=== PATIENT | female | born 1925 | race Caucasian/White ===

== ENCOUNTER 2017-03-17 18:10 | Inpatient (IN) | payer MEDICARE ==
[~2017-03-17] VITALS: Ht 160 cm; Wt 60.5 kg
[~2017-03-17 18:10] MED LIST: ACETAMINOPHEN325 MG PO; ARTIFICIAL TEAR15 ML EACH EYE; BAYER CHEWABLE81 MG PO; DONEPEZIL HCL10 M1 PO; FISH OIL 500 MG1 CAP PO; HALDOL DECA100 MG/M1 IM; HALDOL5 MG PO; LEXAPRO10 MG PO; MEGACE40 MG PO; MOBIC7.5 MG PO; NAMENDA XR14 MG PO; NORVASC2.5 MG PO; PERPHENAZINE2 MG PO; PRILOSEC20 MG PO; REMERON15 MG PO; SYNTHROID25 MCG PO; VITAMIN B-121000 MCG PO; VITAMIN D31000 UNI2 PO; VITAMIN D5000 UNIT PO; VITAMIN D50000 UNIT PO; ZYPREXA15 MG PO
--- NOTE | 2017-03-17 18:10 | NUR ---
Received patient from [facility] via their transportation van and staff via patient personal WC. Admitted for suicidial ideations, per nurisng home patient had made a belt out of baby wipes and had it around her chest, stating she had made a belt to hold her pants up, of which she was not wearing pants, patient dose have history of suicidial statement. Upon her arrival here on floor, she spit on one of the techs then rolled off in her wc. Redirected on appropriate behavior.
--- NOTE | 2017-03-17 22:56 | NUR ---
RECEIVED IN HALLWAY. MOVING ABOUT IN WHEELCHAIR. CALM AND COOPERATIVE WITH CARE AND ASSESSMENTS. DENIES THOUGHTS OF SELF HARM AT THIS TIME. ENCOURAGE TO EXPRESS NEEDS. RESTING IN BED EYES CLOSED AT THIS TIME. CONTINUE PLAN OF CARE
[2017-03-18 05:39] VITALS: BP 133/87
[2017-03-18 05:57] VITALS: BP 133/87
[2017-03-18 06:12] LABS: BASOPHILS 0.5 % (0-2); EOSINOPHILS 2.9 % (0-7); HEMATOCRIT 42.4 % (36.0-48.0); IMMATURE GRANULOCYTES 0.2 % (0-5); LYMPHOCYTES 49.1 % (15-50); MCH 29.3 pg (26.0-34.0); MCV 88.7 fL (80.0-100.0); MEAN PLATELET VOLUME 10.4 fL (7.4-10.4); MONOCYTES 10.8 % (2-11); NEUTROPHILS 36.5 % (40-80); PLATELET COUNT 172 10x3/uL (130-400); RBC 4.78 10x6/uL (4.00-5.40); RDW 13.9 % (11.5-14.5); WBC 5.9 10x3/uL (4.8-10.8)
[2017-03-18 06:21] LABS: HEMOGLOBIN A1C 4.9 % (4.8-6.0)
[2017-03-18 07:18] LABS: ALBUMIN 2.9 g/dL (3.4-5.0); ALKALINE PHOSPHATASE 61 U/L (46-116); ALT (SGPT) 14 U/L (10-68); BILIRUBIN - TOTAL 0.73 mg/dL (0.2-1.3); CALC OSMOLALITY 286 mosm/kg (275-300); CARBON DIOXIDE 29.2 mmol/L (21.0-32.0); CHLORIDE - SERUM 107 mmol/L (98-107); CHOL - HDL RATIO 3.6 ratio (2.3-4.1); CHOLESTEROL, TOTAL 182 mg/dL (0-200); CREATININE - SERUM 0.6 mg/dL (0.6-1.3); GLUCOSE 79 mg/dL (74-106); HDL CHOLESTEROL 51 mg/dL (32-96); LDL CHOLESTEROL 111 mg/dL (0-100); LDL-HDL RATIO 2.2 ratio (1.5-3.5); PROTEIN - SERUM 6.6 g/dL (6.4-8.2); SODIUM 144 mmol/L (136-145); THYROID STIMULATING HORMONE 2.65 uIU/mL (0.36-3.74); TRIGLYCERIDE 104 mg/dL (30-200); UREA NITROGEN 16 mg/dL (7-18); eGFR NON AFRICAN AMERICAN > 90 mL/min (90-120)
[2017-03-18 08:14] VITALS: BP 160/80
--- NOTE | 2017-03-18 12:42 | NUR ---
Received this am alert and oriented to self only. Redirect and reorient. Monitor for any suicidial ideation. Contract for safety. Monitor medication compliance. Maintain safety. No evidence of reorientation to place, time or situation, patient is resistant to directions and will stare at staf then roll her eyes and roll off in wc, refused medication this am but following education on medications patient states " give them to me" once nurse arrived back with new medication she refused. Attempted to throw her lunch tray off the table, refusing to eat. Difficulty with redirection. Safety maitained. Continue plan of care.
[2017-03-18 20:15] VITALS: BP 156/84
--- NOTE | 2017-03-19 00:33 | NUR ---
B) Recieved patient in her room, alert and oriented to self, withdrawn and refusing to commuicate with staff, self ambulates in wheelchair, I) Administered perscribed medications, monitored for safety, R) medication compliant, withdrawn and defiant, P) Continue plan of care.
[2017-03-19 06:13] LABS: VITAMIN D 25 HYDROXY 27.5 ng/mL (30.0-100.0)
[2017-03-19 07:25] LABS: FOLATE (FOLIC ACID) - SERUM 8.3 ng/mL (>3.0)
[2017-03-19 13:14] LABS: RAPID PLASMA REAGIN Reactive (Non Reactive); TREPONEMA PALLIDUM AB Negative (Negative)
--- NOTE | 2017-03-19 14:54 | NUR ---
B) PATIENT IS IRRITABLE AND GRUMPY, SHE DID NOT PRESENT THIS AM WITH AN ARMBAND SO THIS NURSE ASKED HER HER NAME, SHE SAID 'I DON'T HAVE A NAME" PATIENT DOES NOT WANT TO BE TOUCHED OR TALKED TO, BUT SHE DID COMPLY WITH AM MEDS. PATIENT IS ORIENTED TO SELF, SHE DOESN'T KNOW WHERE SHE IS, SHE DOESN'T KNOW WHY SHE IS HERE AND WHY SHE CAN'T GO TO BED. PATIENT HAS NOT SHOWN ANY S.I. TODAY NOR HAS SHE BEEN AGGRESSIVE WITH STAFF. I) PROVIDE MEDS. R) PATIENT IS COMPLIANT WITH MEDS. P) CONTINUE POC.
[2017-03-19 19:48] VITALS: BP 127/75
--- NOTE | 2017-03-20 01:59 | NUR ---
B) Recieved patient in the day room, alert and oriented to self, withdrawn and keeping to herself, I) Administered perscribed medications, monitored for falls and safety, R) medication compliant, resting quietly now, P) Continue plan of care.
--- NOTE | 2017-03-20 12:15 | NUR ---
B) PATIENT IS AWAKE AND ALERT, SHE ALLOWED ASSESSMENT, BUT SHE SAID "HITLER", SHE IS IN A W/C AND SELF PROPELS, SHE IS DELUSIONAL AND HAS POOR SHORT TERM MEMORY RECALL. I) PROVIDE PRESCRIBED MEDS. R) PATIENT IS COMPLIANT WITH MEDS. P) CONTINUE POC.
[2017-03-20 15:09] VITALS: BP 158/100
[2017-03-20 19:00] VITALS: BP 165/114
--- NOTE | 2017-03-20 21:01 | NUR ---
ORIENTED TO PERSON ONLY. MADE RANDOM DELUSIONAL STATEMENTS. REORIENTED FREQUENTLY WITH NO EVIDENCE OF RETAINING. EDUCATED ON FALL PRECAUTIONS. WILL CONTINUE TO MONITOR AND CONTINUE WITH PLAN OF CARE.
[2017-03-21 10:42] VITALS: BP 131/83
--- NOTE | 2017-03-21 13:35 | NUR ---
B) PATIENT IS AWAKE AND ALERT, SHE IS ORIENTED TO HER NAME ONLY. SHE IS EATING AND DRINKING WELL. PATIENT CAN JEFFRY PROPEL IN THE W/C. I) PROVIDE PRESCRIBED MEDS. R) PATIENT IS COMPLIANT WITH MEDS. P) CONTINUE POC.
[2017-03-21 19:30] VITALS: BP 143/95
--- NOTE | 2017-03-21 20:00 | NUR ---
B) RECEIVED IN DAYROOM SITTING IN W/C AT TABLE. SHE IS CONFUSED, BUT KNOWS HER NAME ONLY. CALM AND COOPERATIVE WITH ASSESSMENT AND CARE. I) VSS ADMINISTER PRESCRIBED MEDICATIONS. R) COMPLIANT WITH TAKING MEDICATIONS. CRUSHED IN APPLESAUCE. P) WILL CONTINUE CURRENT PLAN OF CARE AND MONITOR FOR SAFETY AND CHANGES.
[2017-03-22 07:00] VITALS: BP 168/105
[2017-03-22 19:30] VITALS: BP 138/86
--- NOTE | 2017-03-22 20:32 | NUR ---
PT RECIEVED IN W/C AT NURSE STATION. PT ALERT AND ORIENTED TO SELF ONLY. PT DENIES PAIN. NO HALLUCINATIONS OR DELUSIONS NOTED OR REPORTED. PT IS COOPERATIVE WITH STAFF AND IS COMPLIANT WITH MEDS AND CARE. NO AGGRESSION NOTED. PT IS REDIRECTED AND REORIENTED NEEDED. SAFETY MEASURES ARE IMPLEMENTED. WILL CONTINUE TO MONITOR AND CONTINUE WITH PLAN OF CARE.
--- NOTE | 2017-03-22 20:40 | NUR ---
RECEIVED IN DAYROOM. SITTING IN WHEELCHAIR AT TABLE. CALM AND COOPERATIVE WITH CARE AND ASSESSMENTS. NO THOUGHTS OF SELF HARM. ENCOURAGE TO EXPRESS NEEDS. CONTINUES TO SIT QUIETLY AT TABLE. CONTINUE PLAN OF CARE
[2017-03-23 10:13] VITALS: BP 139/120
[2017-03-23 15:46] VITALS: Ht 160 cm; Wt 60.5 kg
--- NOTE | 2017-03-23 15:47 | NUR ---
ORIENTED TO PERSON ONLY. PT EASILY AGITATED WHEN ASKED TO DO SOMETHING THAT SHE DOESN'T WANT TO DO. PT BECAME VERBALLY AGGRESSIVE DURING BREAKFAST AND SCREAMED AND CURSED AT STAFF. SHE DI CALM DOWN AFTER REDIRECTION. MEDICATIONS GIVEN ORDERED. FALL PRECAUTIONS MAINTAINED. WILL CONTINUE TO MONITOR AND CONTINUE WITH PLAN OF CARE.
[2017-03-23 19:30] VITALS: BP 88/69
--- NOTE | 2017-03-23 19:56 | NUR ---
RECEIVED IN DAYROOM. SITTING AT TABLE WITH STAFF AND PEERS. NOT SOCIALIZING. CALM AND COOPERATIVE WITH CARE AND ASSESSMENTS. ENCOURAGE TO EXPRESS NEEDS. CONTINUES TO SIT QUIETLY IN WHEELCHAIR AT TABLE. CONTINUE PLAN OF CARE
[2017-03-24 09:57] VITALS: BP 174/94
[2017-03-24 11:02] VITALS: BP 125/61
--- NOTE | 2017-03-24 13:53 | NUR ---
Alert and oriented to her name only, calm and coooperative with assessment. Redirect and reorient as need. Monitor safety. Pleasant and sits quietly, self propeling in W/C, no aggression. No evidence of reorientation. Safety maintained. Continue plan of care.
--- NOTE | 2017-03-24 19:59 | NUR ---
RECEIVED IN DAYROOM. SITTING IN RECLINER AT TABLE WITH STAFF AND PEERS. NOT SOCIALIZING WITH PEERS. CALM AND COOPERATIVE WITH CARE AND ASSESSMENTS. DENIES THOUGHTS OF SELF HARM. ENCOURAGE TO EXPRESS NEEDS. CONTINUES TO SIT QUIETLY IN RECLINER. CONTINUE PLAN OF CARE
[2017-03-25 11:34] VITALS: BP 146/87
--- NOTE | 2017-03-25 11:39 | NUR ---
ORIENTED TO PERSON ONLY. PT CONTINUES TO BE VERY AGITATED BUT NO PHYSICAL AGGRESSION. MEDICATIONS GIVEN ORDERD. FALL PRECAUTIONS MAINTAINED. WILL CONTINUE TO MONITOR AND CONTINUE WITH PLAN OF CARE.
[2017-03-25 19:30] VITALS: BP 148/98
--- NOTE | 2017-03-25 20:10 | NUR ---
RECEIVED IN DAYROOM SITTING IN RECLINER AT TABLE. ALERT AND ORIENTED TO NAME. NO SIGNS OF AGGRESION TONIGHT. ADMINISTER PRESCRIBED MEDS. VSS. COMPLIANT WITH MEDICATIONS. REDIRECT AND REORIENT NEEDED. CONTINUE PLAN OF CARE.
[2017-03-26 08:00] VITALS: BP 109/60
--- NOTE | 2017-03-26 12:03 | NUR ---
NO AGGRESSION NOTED. ORIENTED TO PERSON ONLY. ENCOURAGED PT TO PARTICIPATE IN GROUPS. PT DOES NOT COMMUNICATE OFTEN BUT SHE ABLE TO EXPRESS HER NEEDS. MEDICATIONS GIVEN ORDERED. FALL PRECAUTIONS MAINTAINED. WILL CONTINUE TO MONITOR AND CONTINUE WITH PLAN OF CARE.
--- NOTE | 2017-03-26 13:53 | NUR ---
Nutrition Follow Up: Chart reviewed. Pt is eating 40% meal avg on a regular [facility] soft diet. Wt stable. +BM 03/25/17. No new labs to review. Meds noted including Megace. Rec continue current diet. Rec continue Megace. RD following.
--- NOTE | 2017-03-26 20:43 | NUR ---
B- SITTING QUIETLY IN WHEELCHAIR IN DAY ROOM. I-MEDS ADMINISTERED AND MONITORING FOR FALLS AND SAFETY. R-COMPLIANT WITH MEDS. P- WILL CONTINUE WITH PLAN OF CARE.
[2017-03-26 21:53] VITALS: BP 170/101
[2017-03-27 07:59] VITALS: BP 155/88
--- NOTE | 2017-03-27 12:48 | NUR ---
RECEIVED IN BED THIS AM.TRANSFERS TO WHEELCHAIR WITH ASSIST OF ONE.IS CONFUSED AND DISORIENTED.COMPLIANT WITH STAFF AND MEDS.MONITOR FOR CHANGES AND SAFETY.WILL CONTINUE WITH PLAN OF CARE.
--- NOTE | 2017-03-27 18:12 | NUR ---
RECEIVED IN DINIGN AREA. SITTING AT TABLE WITH PEERS AT SUPPER TIME. NOT SOCIALIZING. CALM AND COOPERATIVE WITH CARE AND ASSESSMENTS. NO SIGNS OF AGGRESSION. DENIES SELF HARM. REDIRECT AND REORIENT NEEDED. ENCOURAGE TO EXPRESS NEEDS. SITTING CALMLY IN DAYROOM AT THIS TIME. CONTINUE PLAN OF CARE
[2017-03-27 19:30] VITALS: BP 103/83
[2017-03-28 09:57] VITALS: BP 154/87
--- NOTE | 2017-03-28 11:03 | NUR ---
RECEIVED THIS AM IN BED,TRANSFER TO WHEELCHAIR PER ASSIST OF ONE.IS CONFUSED AND DISORIENTED.NO SIGNS OF AGGRESSION OBSERVED.WILL CONTINUE WITH PLAN OF CARE,OBSERVE FOR SAFETY AND CHANGES.
[2017-03-28 19:30] VITALS: BP 146/86
--- NOTE | 2017-03-29 01:02 | NUR ---
B) Recieved patient in the day room, alert and oriented to self, withdrawn and reluctant to speak to this nurse, I) Administered perscribed medications, monitored for falls and safety, R) Medication compliant, quiet and cooperative, P) Continue plan of care.
[2017-03-29 07:00] VITALS: BP 124/91
--- NOTE | 2017-03-29 10:00 | NUR ---
RECEIVED IN W/C WITH ONE TRANSFER ASSIST. NO AGGRESSION NOTED. STAYS TO HER SELF. ADMINISTER PRESCRIBED MEDS. CALM AND COOPERATIVE WITH ASSESSMENT. COMPLIANT WITH TAKING MEDS. WILL CONTINUE PLAN OF CARE.
--- NOTE | 2017-03-29 20:08 | NUR ---
RECEIVED IN DAYROOM. SITTING IN A WHEELCHAIR FACING TV. NOT SOCIALIZING WITH STAFF OR PEERS. CALM AND COOPERATIVE WITH STAFF AND PEERS. DENIES THOUGHT OF SELF HARM. CONTINUE PLAN OF CARE
[2017-03-29 21:39] VITALS: BP 149/77
[2017-03-30 07:00] VITALS: BP 120/91
--- NOTE | 2017-03-30 12:57 | NUR ---
ORIENTED TO PERSON ONLY. NO AGGRESSION NOTED. PT REQUIRES FREQUENT REDIRECTION WITH NO EVIDENCE OF RETAINING. DENIES SI. MEDICATIONS GIVEN ORDERED. FALL PRECAUTIONS MAINTAINED. WILL CONTINUE TO MONITOR AND CONTINUE WITH PLAN OF CARE.
[2017-03-30 21:05] VITALS: BP 127/80
--- NOTE | 2017-03-30 23:01 | NUR ---
RECEIVED IN DAYROOM. SITTING IN A RECLINER. CALM AND COOPERATIVE WITH CARE AND ASSESSMENTS. DENIES THOUGHTS OF SELF HARM. ENCOURAGE TO EXPRESS NEEDS. RESTING IN BED EYES CLOSED AT THIS TIME. CONTINUE PLAN OF CARE
--- NOTE | 2017-03-30 23:14 | NUR ---
RECEIVED IN DAYROOM. SITTING WITH PEERS. NOT SOCIALIZING. CALM AND COOPERATIVE WITH CARE AND ASSESSMENTS. DEN IES THOUGHTS OF SELF HARM. ENCOURAGE TO EXPRESS NEEDS. NO SIGNS OF AGGRESSION. RESTING IN BED EYES CLOSED. CONTINUE PLAN OF CARE
[2017-03-31] MEDS ORDERED: MEGACE40 MG PO (08:45)
[2017-03-31] MEDS ORDERED: PERPHENAZINE2 MG PO (08:46)
[2017-03-31] MEDS ORDERED: ARICEPT5 MG PO (08:46)
[2017-03-31] MEDS ORDERED: NORVASC5 MG PO (08:46)
[2017-03-31] MEDS ORDERED: NYSTATIN1 PWD TOPICAL (08:47)
[2017-03-31] MEDS ORDERED: VITAMIN D5000 UNIT PO (08:47)
[2017-03-31 09:59] VITALS: BP 141/88
--- NOTE | 2017-03-31 10:30 | NUR ---
ORIENTED TO SELF ONLY. CALM AND COOPERATIVE WITH ASSESSMENT. REQUIRES FREQUENT REDIRECTING AND REORIENTING. ADMINISTERED MEDICATIONS ORDERED. NO AGGRESSION NOTED AND DENIES SI. MONITOR FOR SAFETY AND MAINTAIN FALL PRECAUTIONS. WILL CONTINUE PLAN OF CARE.
--- NOTE | 2017-03-31 21:10 | NUR ---
RECEIVED IN HALLWAY OUTSIDE OF NURSES. SITTING IN A CHAIR. NOT SOCIALIZING. CALM AND COOPERATIVE WITH CARE. DENIES THOUGHTS OF SELF HARM. NO SIGNS OF AGGRESSION. REDIRECT AND REORIENT NEEDED. RESTING IN BED AT THIS TIME. CONTINUE PLAN OF CARE
[2017-04-01 08:30] VITALS: BP 125/59
[2017-04-01 09:00] VITALS: BP 102/71
--- NOTE | 2017-04-01 11:15 | NUR ---
B) PATIENT IS AWAKE AND ALERT, SHE IS ORIENTED X1, SHE SELF PROPELS IN HER W/C, SHE IS DELUSIONAL AT TIMES, AND SHE IS TERSE IN SPEECH AND SAYS WHAT IS ON HER MIND EASILY. I) PROVIDE PRESCRIBED MEDS. R) PATIENT IS COMPLIANT WITH MEDS AND UNIT MILIEU. P) CONTINUE POC.
[2017-04-01 19:30] VITALS: BP 152/99
--- NOTE | 2017-04-02 00:17 | NUR ---
B) Recieved patient in her room, alert and oriented to self, withdrawn and just wanting to sleep, I) Administered perscribed medications, monitored for safety, R) Medication compliant, sleeping now, P) Continue plan of care.
[2017-04-02 07:31] VITALS: BP 147/92
--- NOTE | 2017-04-02 09:45 | NUR ---
B) PATIENT IS AWAKE AND ALERT, SHE IS CONFUSED AND MISINTERPRETS, THIS NURSE WALKED BEHIND HER AND SHE SAW THAT I WAS WALKING BEHIND HER AND SHE BACKED HER W/C INTO ME. REDIRECTED PATIENT. PATIENT IS IN HER W/C SELF PROPELS, SAYS VERY LITTLE. SHE STARES BLNKLY AT ANYONE WHO SPEAKS TO HER, BUT SHE IS ABLE TO SPEAK. I) PROVIDE PRESCRIBED MEDS. R) PATIENT IS COMPLIANT WITH MEDS AND SELF PROPELS. P) CONTINUE POC.
--- NOTE | 2017-04-02 14:10 | NUR ---
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 CLOTHES ACCOUNTED FOR AND PACKED.
--- NOTE | 2017-04-02 14:20 | NUR ---
PATIENT D/C'D TO [facility], THE MACHINE SET UP IS HERE, PATIENT ASSISTED TO VAN BY STAFF. PATIENT IS NOW OFF THE UNIT. CALLED TO GIVE REPORT. STAFF ARE FAMILIAR WITH PATIENT.
== END 2017-04-02 14:25 | DRG 57 ==
LOC: D.PSYCH 18:10
PROVIDERS: ADMIT Psychiatry & Neurology Psychiatry
DX: G30.9 Alzheimer's disease, unspecified (principal); F02.81 Dementia in other diseases classified elsewhere, unspecified severity, with behavioral disturbance; E03.9 Hypothyroidism, unspecified; F32.9 Major depressive disorder, single episode, unspecified; I10 Essential (primary) hypertension; M19.90 Unspecified osteoarthritis, unspecified site; E53.8 Deficiency of other specified B group vitamins; E55.9 Vitamin D deficiency, unspecified; M81.0 Age-related osteoporosis without current pathological fracture; K59.00 Constipation, unspecified; R26.9 Unspecified abnormalities of gait and mobility

== ENCOUNTER 2017-05-07 19:40 | Inpatient (IN) | payer MEDICARE ==
[~2017-05-07 19:40] MED LIST changes: +ARICEPT5 MG PO; +NORVASC5 MG PO; +NYSTATIN1 PWD TOPICAL
[2017-05-07 20:39] LABS: BASOPHILS 0.4 % (0-2); EOSINOPHILS 3.6 % (0-7); HEMATOCRIT 37.5 % (36.0-48.0); HEMOGLOBIN 12.3 g/dL (12-16); LYMPHOCYTES 44.5 % (15-50); MCH 29.4 pg (26.0-34.0); MCHC 32.8 g/dL (31.0-37.0); MCV 89.7 fL (80.0-100.0); MEAN PLATELET VOLUME 10.3 fL (7.4-10.4); MONOCYTES 11.8 % (2-11); NEUTROPHILS 39.7 % (40-80); PLATELET COUNT 172 10x3/uL (130-400); RBC 4.18 10x6/uL (4.00-5.40); RDW 15.2 % (11.5-14.5); WBC 4.8 10x3/uL (4.8-10.8)
[2017-05-07 20:54] LABS: APPEARANCE CLOUDY (CLEAR); BILIRUBIN NEGATIVE (NEGATIVE); COLOR YELLOW (YELLOW); GLUCOSE NEGATIVE (NEGATIVE); KETONE NEGATIVE (NEGATIVE); LEUKOCYTE ESTERASE TRACE (NEGATIVE); NITRITE NEGATIVE (NEGATIVE); PROTEIN NEGATIVE (NEGATIVE); SPECIFIC GRAVITY 1.025 (1.005-1.020)
[2017-05-07 20:55] LABS: RED CELLS - URINE 0-5 /hpf (0-5)
[2017-05-07 20:56] LABS: ALBUMIN 2.4 g/dL (3.4-5.0); ALKALINE PHOSPHATASE 61 U/L (46-116); ALT (SGPT) 17 U/L (10-68); BILIRUBIN - TOTAL 0.48 mg/dL (0.2-1.3); CALC OSMOLALITY 283 mosm/kg (275-300); CALCIUM 8.2 mg/dL (8.5-10.1); CARBON DIOXIDE 27.5 mmol/L (21.0-32.0); CHLORIDE - SERUM 110 mmol/L (98-107); CREATININE - SERUM 0.7 mg/dL (0.6-1.3); MAGNESIUM - SERUM 1.7 mg/dL (1.8-2.4); POTASSIUM - SERUM 3.3 mmol/L (3.5-5.1); SODIUM 142 mmol/L (136-145); UREA NITROGEN 12 mg/dL (7-18); eGFR NON AFRICAN AMERICAN 83 mL/min (90-120)
[2017-05-07 20:56] LABS: BACTERIA MANY /hpf (NONE SEEN)
[2017-05-07 20:57] LABS: GLUCOSE 119 mg/dL (74-106)
[2017-05-07 20:58] LABS: UDS - AMPHET NEGATIVE QUAL (NEGATIVE); UDS - BARB NEGATIVE QUAL (NEGATIVE); UDS - BENZO NEGATIVE QUAL (NEGATIVE); UDS - COCAINE NEGATIVE QUAL (NEGATIVE); UDS - METH NEGATIVE QUAL (NEGATIVE); UDS - OPIATE NEGATIVE QUAL (NEGATIVE); UDS - PCP NEGATIVE QUAL (NEGATIVE); UDS - THC NEGATIVE QUAL (NEGATIVE)
[2017-05-07] MEDS ORDERED: REMERON15 MG PO (23:57)
[2017-05-07] MEDS ORDERED: HALDOL DECA100 MG/M1 IM (23:59)
--- NOTE | 2017-05-08 00:52 | NUR ---
Patient arrived at 23:15, from E[facility] via streacher accompanied by E.D> staff, family called, consent given for admit, code word: 2609, code status is DNR per family and SIMONE Harp, admit per Solange, patient calm and cooperative, no behaviors noted, will continue to monitor.
[2017-05-08 03:57] VITALS: BP 132/78; BMI 24.3
--- NOTE | 2017-05-08 08:25 | NUR ---
B) PATIENT IS AWAKE AND SHE IS IN HER BED, SHE HAS ALREADY SPIT ON STAFF THIS AM WHEN THEY WENT IN HER ROOM TO GET V/S AND CHECK ON HER, SHE IS TRYING TO TAKE OFF HER ARM BAND. PATIENT NEEDS STAFF ASSIST TO TRANSFER, SHE CAN SELF PROPEL IN HER W/C. I) PROVIDE PRESCRIBED MEDS. R) PATIENT IS IRRITABLE THIS AM. P) CONTINUE POC.
[2017-05-08 10:27] LABS: CHOL - HDL RATIO 5.6 ratio (2.3-4.1); LDL-HDL RATIO 3.9 ratio (1.5-3.5); THYROID STIMULATING HORMONE 8.37 uIU/mL (0.36-3.74)
--- NOTE | 2017-05-08 15:35 | NUR ---
PATIENT IS C/O HEADACHE RATES IT 01/28, DID RECEIVE ORDER OF TYLENOL. PROVIDED TYLENOL 650 MG PO NOW, WILL MONITOR.
[2017-05-08 20:44] VITALS: BP 127/95
--- NOTE | 2017-05-09 01:45 | NUR ---
B) Patient alert and oriented to self, calm and cooperative with care and assessment, very confused and has no idea where she is, I) Administered schduled medications, redirected as needed, R) Medication compliant, resting quietly, P) Continue plan of care.
[2017-05-09 05:13] LABS: RAPID PLASMA REAGIN Non Reactive (Non Reactive)
[2017-05-09 08:07] VITALS: BP 111/68
--- NOTE | 2017-05-09 08:29 | PSY ---
PATIENT NAME:DAMARIS RIVER MEDICAL RECORD: [id number] : [birth year] LOCATION:[facility] ADMISSION DATE: 05/07/17 ACCOUNT: [id number] PSYCHIATRIC EVALUATION DATE OF EVALUATION: 05/08/17 Psychiatric Evaluation IDENTIFYING DATA: The patient is 89 years old and she is admitted to the hospital on a voluntary basis. CHIEF COMPLAINT: Suicidal thoughts. HISTORY OF PRESENT ILLNESS: The patient is referred to us from the [facility]. She has no agitated or aggressive behavior. She apparently had been banging her head on the rails of her bed, threatening to kill herself and behaving in a bizarre and irrational way. Today, she denies having done any of this, but is clearly very impaired cognitively. PAST MEDICAL HISTORY: Significant for hypothyroidism and hypertension. PAST PSYCHIATRIC HISTORY: Significant for history of mental illness including depression, schizophrenia and dementia. ALLERGIES: No known drug allergies. CURRENT MEDICATIONS: Megace, Aricept, Norvasc, Haldol Decanoate, Remeron and Trilafon. SOCIAL HISTORY: The patient is . She has no history of drug or alcohol abuse. She does have an adult daughter, who is involved with her care. She has not functioned at a very high level secondary to psychiatric problems throughout much of her adult life. MENTAL STATUS EXAMINATION: The patient is awake, alert and oriented to person and place only. Her mood is flat. Her affect is constricted. Thought processes are circumstantial. Memory, concentration and abstraction abilities are moderately impaired. She denies any active intent to harm herself or others as well as overt psychotic symptoms. ASSETS: Supportive family members. LIABILITIES: Limited insight. DIAGNOSTIC IMPRESSION: AXIS I: 1. Schizophrenia, chronic undifferentiated. 2. Major depression, moderate severity. 3. Senile dementia of the Alzheimer's type. AXIS II: None. AXIS III: ____. AXIS IV: Moderate stressors. AXIS V: Global assessment of functioning is 30. PLAN: At this time, the patient is admitted to the hospital for a comprehensive medical, psychological and social evaluation. She will be treated with both memory enhancing mood stabilizing and antipsychotic medications as deemed appropriate. Her long-term prognosis is guarded. TRANSINT:[id number] Voice Confirmation ID: [id number] DOCUMENT ID: [id number] JENNIFER THORNE MD at 0829 CC: [id number] DICTATION DATE: 05/08/17 1706 ICU RN: 05/08/17 1730 ADM IN [place] [id number] [place] [id number]
--- NOTE | 2017-05-09 11:54 | NUR ---
B) PATIENT IS AWAKE AND ALERT, SHE IS SELF PROPELLING IN THE W/C, SHE TAKES HER MEDS EASILY AND SHE HAS BEEN COMPLIANT AND PARTICIPATES IN GROUPS. I) PROVIDE PRESCRIBED MEDS. R) PATIENT IS PLEASANT AND CALM. P) CONTINUE POC.
--- NOTE | 2017-05-09 17:58 | NUR ---
PATIENT REFUSED PM MEAL. STATES "I'M AFRAID IT WILL MAKE ME HAVE DIARRHEA." PATIENT DECLINED TO HAVE ENSURE OR EVEN ICE WATER AT THIS TIME.
[2017-05-09 19:00] VITALS: BP 149/97
--- NOTE | 2017-05-10 02:24 | NUR ---
B) Patient alert and oriented to self, calm and cooperative with acre and assessment, I) Administered schduled medications, monitored for falls and safety, R) Medication compliant, no behaviors noted, P) Continue plan of care.
[2017-05-10 07:00] VITALS: BP 121/80
--- NOTE | 2017-05-10 13:21 | NUR ---
B) PATIENT IS ALERT, CALM AND COOPERATIVE WITH ASESSMENT AND CARE. VERY WALES, SELF PROPELS IN WHEELCHAIR. NO AGGRESSION OR SELF HARM NOTED. I) ADMINISTERED PRESCRIBED MEDICATIONS. VSS. R) COMPLIANT WITH TAKING MEDICATIONS CRUSHED IN PUDDING. REORIENT AND REDIRECT NEEDED. P) MAINTAIN FALL PRECAUTIONS AND CONTINUE PLAN OF CARE.
[2017-05-10 19:30] VITALS: BP 106/61
--- NOTE | 2017-05-10 20:52 | NUR ---
RECEIVED IN HALLWAY. SITTING OUTSIDE OF NURSES STATION WITH PEERS BY HER SIDE. CALM AND COOPERATIVE WITH CARE AND ASSESSMENTS. FEARFUL AT TIMES. VERY CONFUSED. STATED SHE WANTED TO CHOP HER HEAD OFF. REDIRECT AND REORIENT NEEDED. RESTING IN BED EYES CLOSED AT THIS TIME. CONTINUE PLAN OF CARE
[2017-05-11 06:07] LABS: VITAMIN D 25 HYDROXY 43.1 ng/mL (30.0-100.0)
[2017-05-11 07:00] VITALS: BP 132/90
--- NOTE | 2017-05-11 10:00 | NUR ---
PATIENT IS SITTING IN WHEELCHAIR WITH EYES CLOSED MOST OF DAY. ADMINISTER PRESCRIBED MEDS. REFUSED EVERY TIME NOT TO TAKE HER MEDICATIONS. SEE ASSESSMENT FLOW SHEET. CONTINUE PLAN OF CARE.
--- NOTE | 2017-05-11 13:31 | PN ---
PATIENT:DAMARIS RIVER MEDICAL RECORD: [id number] LOCATION:[facility] ADMISSION DATE: 05/07/17 PROGRESS NOTE DATE OF SERVICE: 05/09/2017 Psychiatric Progress Note SUBJECTIVE: The patient's case was discussed with staff. She has no new complaint. OBJECTIVE: The patient denies intent to harm herself or others. She has made some delusional statements, but has not been openly aggressive. She denies that she would seek to harm herself and has no explanation for the events leading up to this admission. In fact, she has no recollection of it. ASSESSMENT: No change in diagnoses. PLAN: I am going to start the patient on Effexor for its antidepressant effect. Her long-term prognosis is guarded. TRANSINT:[id number] Voice Confirmation ID: [id number] DOCUMENT ID: [id number] JENNIFER THORNE MD at 1331 CC: [id number] DICTATION DATE: 05/09/17 0854 [place] OPERATOR HELPER: 05/09/17 1630 ADM IN [place] [id number] [place] [address]
--- NOTE | 2017-05-11 13:31 | DS ---
PATIENT:DAMARIS RIVER :[birth year] MEDICAL RECORD: [id number] DISCHARGE SUMMARY ADMISSION DATE: 05/07/17 DISCHARGE DATE: Psychiatric Discharge Summary IDENTIFYING DATA: The patient is 89 years old and she was admitted to the hospital on a voluntary basis from the [facility]. The patient was referred to us because of suicidal gestures or statements. She apparently wrapped a belt around her neck and chest and said she wanted to kill herself. She was combative with the staff, spitting on them, cursing them, and fighting with them. She had also thrown her lunch tray across the room earlier that day. HOSPITAL COURSE: The patient was admitted to the hospital and fully evaluated from both a medical, psychological, and social standpoint. She was treated with both memory enhancing, mood stabilizing and antipsychotic medications. The patient did show improvement and was subsequently transitioned out of the hospital. DISCHARGE DIAGNOSES: AXIS I: 1. Schizophrenia, chronic undifferentiated. 2. Major depression, moderate severity without psychotic features. 3. Senile dementia of the Alzheimer's type. AXIS II: None. AXIS III: 1. Hypertension. 2. Hypothyroidism. AXIS IV: Moderate. AXIS V: Global assessment of functioning is 35. PLAN: At the time of discharge, the patient was not psychotic, nor was she making any gestures toward harming herself. She had shown significant improvement through the course of this hospitalization. Her long-term prognosis is guarded. TRANSINT:[id number] Voice Confirmation ID: [id number] DOCUMENT ID: [id number] JENNIFER THORNE MD at 1331 CC: [id number] DICTATION DATE: 05/08/17 1701 OVERCOIL STEPPER: 05/09/17 1435 ADM IN [facility] [address] [place] [address]
[2017-05-11 20:00] VITALS: BP 113/71
--- NOTE | 2017-05-11 22:53 | NUR ---
RECEIVED IN BEDROOM. RESTING IN BED WITH EYES CLOSED. RESPONDS TO VOICE. CALM AND COOPERATIVE WITH CARE AND ASSESSMENT. ENCOURAGE TO EXPRESS NEEDS. CONTINUE PLAN OF CARE
[2017-05-12 07:00] VITALS: BP 157/97
[2017-05-12 09:14] LABS: FOLATE (FOLIC ACID) - SERUM 5.9 ng/mL (>3.0)
--- NOTE | 2017-05-12 13:20 | PN ---
PATIENT:DAMARIS RIVER MEDICAL RECORD: [id number] LOCATION:[facility] ADMISSION DATE: 05/07/17 PROGRESS NOTE DATE OF SERVICE: 05/11/2017 SUBJECTIVE: The patient's case was discussed with staff. She has no new complaint. OBJECTIVE: The patient is in good behavioral control. She has limited insight about her condition. She tolerates her medicines well, but she is refusing to take her medications today. She says they taste bitter. She cannot say which one and she has been swallowing the pills whole. TRANSINT:[id number] Voice Confirmation ID: [id number] DOCUMENT ID: [id number] JENNIFER THORNE MD at 1320 CC: [id number] DICTATION DATE: 05/11/17 1341 RN RESEARCH: 05/11/17 1456 ADM IN [place] [id number] [place] [address]
[2017-05-12 13:34] VITALS: Wt 62.1 kg
--- NOTE | 2017-05-12 14:01 | NUR ---
PATIENT SITTING UP IN A WHEELCHAIR IN DAY ROOM. CONFUSED ET NON VERBLE. TOOK MEDICATIONS CRUSHED IN APPLESAUCE.
[2017-05-12 19:15] VITALS: BP 120/78
--- NOTE | 2017-05-12 19:43 | NUR ---
RECEIVED IN DAYROOM. SITTING IN WHEELCHAIR WITH PEERS AT HER SIDE. NO SOCIALIZING. CALM AND COOPERATIVE WITH CARE AND ASSESSMENTS. ENCOURAGE TO EXPRESS NEEDS. CONTINUES TO SIT QUIETLY. CONTINUE PLAN OF CARE
--- NOTE | 2017-05-13 08:37 | NUR ---
PT ALERT, EATING BREAKFAST. PT AM MEDS ADMINSITERED. PT TOOK MEDS WITHOUT DIFFICULTY. PT DENIES NEEDS. WCTM.
[2017-05-13 18:26] VITALS: BP 138/78
--- NOTE | 2017-05-13 18:52 | NUR ---
RECEIVED IN DAYROOM. SITTING QUIETLY IN WHEELCHAIR. CALM AND COOPERATIVE WITH CARE AND ASSESSMENTS. ENCOURAGE TO EXPRESS NEEDS. REMAIN SITTING QUIETLY IN WHEELCHAIR. CONTINUE PLAN OF CARE
[2017-05-13 20:18] VITALS: BP 106/69
--- NOTE | 2017-05-14 04:34 | PN ---
PATIENT:DAMARIS RIVER MEDICAL RECORD: [id number] LOCATION:[facility] ADMISSION DATE: 05/07/17 PROGRESS NOTE DATE OF SERVICE: 05/13/2017 SUBJECTIVE: No new complaint. OBJECTIVE: The patient has been fairly cooperative. No new problems noted by staff. On exam, mood is euthymic. Affect is constricted. Speech is minimal. Content of thought is negative for overt psychosis. Sensorium shows no change. ASSESSMENT: No change in diagnosis. PLAN: 1. Continue all current medications. 2. Anticipate discharge later this week. TRANSINT:[id number] Voice Confirmation ID: [id number] DOCUMENT ID: [id number] ISMA LEON III, MD at 0434 CC: [id number] DICTATION DATE: 05/13/17 1138 PEDIATRIC ONCOLOGIST: 05/13/17 1736 ADM IN [place] [id number] [place] [address]
--- NOTE | 2017-05-14 07:26 | NUR ---
B) PATIENT IS CALM AND POLITE, SHE IS [place], SHE HAS NOT SHOWN AGGRESSION THIS AM, SHE SELF PROPELS IN HER W/C. I) PROVIDE PRESCRIBED MEDS. R) PATIENT IS COMPLIANT WITH MEDS. P) CONT POC.
[2017-05-14 08:00] VITALS: BP 131/83
[2017-05-14] MEDS ORDERED: EFFEXOR37.5 MG PO (11:52)
[2017-05-14] MEDS ORDERED: FLORAJEN3 CAPS460 MG PO (11:52)
[2017-05-14] MEDS ORDERED: FLORANEX / LACT1 TAB PO (11:53)
[2017-05-14] MEDS ORDERED: SYNTHROID25 MCG PO (11:53)
[2017-05-14] MEDS ORDERED: MAG-OX 400 MG400 MG PO (11:53)
--- NOTE | 2017-05-14 17:07 | NUR ---
PT C/O H/A RATES IT 01/28. TYLENOL 650 MG PO GIVEN.
--- NOTE | 2017-05-14 17:45 | NUR ---
PATIENT RATES H/A 2/ NOW.
[2017-05-14 19:45] VITALS: BP 117/66
--- NOTE | 2017-05-15 03:13 | NUR ---
B) Patient alert and oriented to self, cam and cooperative with care and assessment, I) Administered percribed medications, monitored for falls and safety, R) Medication compliant, resting quiety in bed, P) Continue plan of care.
--- NOTE | 2017-05-15 05:41 | PN ---
PATIENT:DAMARIS RIVER MEDICAL RECORD: [id number] LOCATION:[facility] ADMISSION DATE: 05/07/17 PROGRESS NOTE DATE OF SERVICE: 05/14/2017 SUBJECTIVE: No new complaint. OBJECTIVE: The patient has tolerated medications fairly well. No combativeness noted the last 24 hours. On exam, mood is euthymic. Affect is rather constricted. Speech is terse. Content of thought is unchanged. Sensorium unchanged. ASSESSMENT: No change in diagnosis. PLAN: 1. Continue current medications. 2. Anticipate discharge tomorrow. TRANSINT:[id number] Voice Confirmation ID: [id number] DOCUMENT ID: [id number] ISMA LEON III, MD at 0541 CC: [id number] DICTATION DATE: 05/14/17 1235 FIRST DYER: 05/14/17 2018 ADM IN [facility] [address] [place] [address]
[2017-05-15 08:31] VITALS: BP 131/89
--- NOTE | 2017-05-15 08:35 | NUR ---
B) PATIENT IS AWAKE AND ALERT, SHE IS READY TO D/C FAXED ALL MEDS AND D/C ORDERS TO [facility]. PATIENT IS [place]. SHE HAS NOT HAD ANY HALLUCINATIONS OR AGGRESSION. I) PROVIDE PRESCRIBED MEDS. R) PATIENT IS COMPLIANT WITH MEDS AND UNIT MILIEU. P) CONTINUE D/C PLAN.
--- NOTE | 2017-05-15 11:56 | NUR ---
CALLED REPORT TO [facility] AND THEY WILL PICK HER UP AT 1330 TODAY.
--- NOTE | 2017-05-15 14:10 | NUR ---
PATIENT D/C'D TO [facility], HARD COPY OF ORDERS AND MED LIST PROVIDED FOR HEAVY EQUIPMENT SERVICE MANAGER. PATIENT ASSISTED TO VAN BY STAFF. PATIENT IS NOW OFF THE UNIT.
--- NOTE | 2017-05-16 20:20 | PN ---
PATIENT:DAMARIS RIVER MEDICAL RECORD: [id number] LOCATION:KATELYNN Melendez ADMISSION DATE: 05/07/17 PROGRESS NOTE DATE OF SERVICE: 05/15/2017 SUBJECTIVE: No new complaint. OBJECTIVE: The patient has been cooperative. She has taken her medication as prescribed without difficulty. We do anticipate discharge today. On exam, mood is more or less euthymic. Affect is reserved. Speech is terse. Content of thought is negative for overt psychosis. Sensorium unchanged. ASSESSMENT: No change in diagnosis. PLAN: Anticipate discharge back to detention later today. TRANSINT:[id number] Voice Confirmation ID: [id number] DOCUMENT ID: [id number] ISMA LEON III, MD at 2020 CC: [id number] DICTATION DATE: 05/15/17 1135 CORONARY CLINICAL SPECIALIST: 05/15/17 1853 DIS IN 05/15/17 [id number] [place] [address]
--- NOTE | 2017-05-18 14:08 | PN ---
PATIENT:DAMARIS RIEVR MEDICAL RECORD: [id number] LOCATION:MANAAugustina LowArlenNiesha ADMISSION DATE: 05/07/17 PROGRESS NOTE DATE OF SERVICE: 05/12/2017 SUBJECTIVE: The patient's case was discussed with staff. She has no new complaint. OBJECTIVE: The patient is in good behavioral control with limited insight about her condition. She tolerates her medicines well. ASSESSMENT: No change in diagnoses. PLAN: Brief supportive and educational interventions were made. The patient's long-term prognosis is guarded. I am going to discontinue her long-acting Haldol Decanoate injection. I would anticipate that she could reasonably be transitioned back to the jail soon if this level of improvement is maintained. TRANSINT:[id number] Voice Confirmation ID: [id number] DOCUMENT ID: [id number] JENNIFER THORNE MD at 1408 CC: [id number] DICTATION DATE: 05/12/17 1353 BUSINESS SERVICES ADMINISTRATOR: 05/12/17 1653 DIS IN 05/15/17 [id number] [place] [address]
== END 2017-05-15 14:15 | DRG 57 ==
LOC: D.ER 19:40 → D.PSYCH 22:45
PROVIDERS: Emergency Medicine; Psychiatry & Neurology Psychiatry; ADMIT Psychiatry & Neurology Psychiatry
DX: G30.1 Alzheimer's disease with late onset (principal); F02.81 Dementia in other diseases classified elsewhere, unspecified severity, with behavioral disturbance; F20.5 Residual schizophrenia; F32.1 Major depressive disorder, single episode, moderate; N39.0 Urinary tract infection, site not specified; E03.9 Hypothyroidism, unspecified; I10 Essential (primary) hypertension; M19.90 Unspecified osteoarthritis, unspecified site; M81.0 Age-related osteoporosis without current pathological fracture; Z74.09 Other reduced mobility; E53.8 Deficiency of other specified B group vitamins; E55.9 Vitamin D deficiency, unspecified; E78.5 Hyperlipidemia, unspecified; K59.00 Constipation, unspecified

== ENCOUNTER 2017-06-15 17:26 | Inpatient (IN) | payer MEDICARE ==
[~2017-06-15 17:26] MED LIST changes: +EFFEXOR37.5 MG PO; +FLORAJEN3 CAPS460 MG PO; +FLORANEX / LACT1 TAB PO; +MAG-OX 400 MG400 MG PO
[2017-06-15 18:39] LABS: BASOPHILS 0.4 % (0-2); EOSINOPHILS 1.8 % (0-7); HEMATOCRIT 44.9 % (36.0-48.0); HEMOGLOBIN 14.7 g/dL (12-16); IMMATURE GRANULOCYTES 0.1 % (0-5); LYMPHOCYTES 49.4 % (15-50); MCH 30.6 pg (26.0-34.0); MCHC 32.7 g/dL (31.0-37.0); MCV 93.5 fL (80.0-100.0); MEAN PLATELET VOLUME 10.6 fL (7.4-10.4); MONOCYTES 10.8 % (2-11); NEUTROPHILS 37.5 % (40-80); RDW 14.2 % (11.5-14.5); WBC 9.4 10x3/uL (4.8-10.8)
[2017-06-15 18:45] LABS: APPEARANCE CLEAR (CLEAR); BILIRUBIN NEGATIVE (NEGATIVE); COLOR YELLOW (YELLOW); GLUCOSE NEGATIVE (NEGATIVE); KETONE NEGATIVE (NEGATIVE); NITRITE NEGATIVE (NEGATIVE); PROTEIN NEGATIVE (NEGATIVE); SPECIFIC GRAVITY 1.025 (1.005-1.020); UROBILINOGEN NORMAL (NORMAL)
[2017-06-15 18:46] LABS: BACTERIA FEW /hpf (NONE SEEN); EPITHELIAL CELLS 0-5 /hpf (0-5); RED CELLS - URINE 0-5 /hpf (0-5); WHITE CELLS - URINE OCC /hpf (0-5)
[2017-06-15 19:05] LABS: ALBUMIN 3.3 g/dL (3.4-5.0); ANION GAP 12.5 mmol/L (8-16); BILIRUBIN - TOTAL 0.6 mg/dL (0.2-1.3); CARBON DIOXIDE 26.2 mmol/L (21.0-32.0); CREATININE - SERUM 0.9 mg/dL (0.6-1.3); POTASSIUM - SERUM 3.7 mmol/L (3.5-5.1); PROTEIN - SERUM 7.1 g/dL (6.4-8.2)
[2017-06-15 19:09] LABS: PLATELET COUNT 223 10x3/uL (130-400)
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
[2017-06-16 07:00] VITALS: BP 151/99
[2017-06-16 07:04] LABS: HEMOGLOBIN A1C 5.1 % (4.8-6.0)
[2017-06-16 07:16] LABS: CHOL - HDL RATIO 4.5 ratio (2.3-4.1); THYROID STIMULATING HORMONE 6.01 uIU/mL (0.36-3.74)
--- NOTE | 2017-06-16 10:49 | NUR ---
B) PATIENT IS AWAKE AND SHE IS SMILING THIS AM, SHE HAS NOT SHOWN ANY AGGRESSION THIS AM. SHE SELF PROPELS IN HER W/C AND SHE CAN TRANSFER WITH ASSIST. I) PROVIDE PRESCRIBED MEDS. R) PATIENT IS COMPLIANT WITH MEDS AND UNIT MILIEU. P) CONTINUE POC.
[2017-06-16 20:01] VITALS: BP 141/100
--- NOTE | 2017-06-16 20:30 | NUR ---
RECEIVED IN DAYROOM. SITTING IN WHEELCHAIR WITH PEERS BY HER SIDE. NOT SOCIALIZING. CALM AND COOPERATIVE WITH CARE AND ASSESSMENTS. NO SIGNS OF AGGRESSION. REDIRECT AND REOIRIENT NEEDED. CONTINUES TO SIT QUIETLY AT TABLE. CONTINUE PLAN OF CARE
[2017-06-17 07:27] LABS: RAPID PLASMA REAGIN Non Reactive (Non Reactive)
[2017-06-17 08:00] VITALS: BP 145/101
[2017-06-17 08:21] LABS: VITAMIN D 25 HYDROXY 62.1 ng/mL (30.0-100.0)
[2017-06-17 09:16] LABS: FOLATE (FOLIC ACID) - SERUM 10.3 ng/mL (>3.0)
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
--- NOTE | 2017-06-17 13:39 | NUR ---
DURING MORNING ASSESSMENT PT WAS AGITATED AND SLAMMING HER WHEELCHAIR INTO THINGS AND TRYING TO RUN OVER STAFF. PT TOOK HER MORNING TRAY AND WAS SLAMMING IT ON THE TABLE. MEDICATIONS GIVEN ORDERED. PT HAS SINCE CALMED DOWN AND IS NO LONGER SHOWING AGGRESSION. FALL PRECAUTIONS MAINTAINED. WILL CONTINUE TO MONITOR AND CONTINUE WITH PLAN OF CARE.
[2017-06-17 20:51] VITALS: BP 106/76
--- NOTE | 2017-06-17 22:04 | NUR ---
RECEIVED IN BEDROOM. LAYING IN BED WITH EYES CLOSED. RESPONDS TO VOICE. VERBALLY ABUSIVE TO STAFF DURING CARE. COOPERATIVE [facility] ASSESSMENT. REDIRECT AND REORIENT NEEDED. CONTINUES TO REST QUIETLY WITH EYES CLOSED. CONTINUE PLAN OF CARE.
[2017-06-18 08:00] VITALS: BP 153/90
--- NOTE | 2017-06-18 10:19 | PN ---
PATIENT:DAMARIS RIVER MEDICAL RECORD: [id number] LOCATION:KATEYLNN Melendez ADMISSION DATE: 06/15/17 PROGRESS NOTE DATE OF SERVICE: 06/17/2017 SUBJECTIVE: No new complaint. OBJECTIVE: The patient continues to be aggressive and requires redirection from time to time. On exam, mood is irritable. Affect is very brittle. Speech is rambling. Content of thought is positive for generalized paranoid ideations. Sensorium shows no change. ASSESSMENT: No change in diagnosis. PLAN: 1. Maintain current medications. 2. Continue supportive therapy. TRANSINT:[id number] Voice Confirmation ID: [id number] DOCUMENT ID: [id number] ISMA LEON III, MD at 1019 CC: [id number] DICTATION DATE: 06/17/17 1140 JURY CONSULTANT: 06/17/17 1450 ADM IN [place] [place] [id number]
--- NOTE | 2017-06-18 17:00 | NUR ---
B) PATIENT HAS BEEN IRRITABLE ALL DAY, GROWLING, CURSING, STRIPPING HER CLOTHES OFF AND SHOWING HER NAKED BODY TO EVERYONE. SHE SAYS "LOOK AT THIS AND THEN SHE WILL HOWL WITH LAUGHTER" SHE HAS BEEN TALKING IN A GROVELY TYPE VOICE ALL DAY, MAKING DEMANDS ON EVERYONE OR JUST CURSING AND SAYING INAPPROPRIATE LEWD REMARKS THIS AM, BUT WHEN HER DAUGHTER CAME SHE BECAM A DIFFERENT PERSON. SHE WAS KIND AND POLITE AND LISTENED TO WHAT HER DAUGHTER TOLD HER, BUT SOON HER DAUGHTER LEFT SHE BEGAN HER GROVELY VOICE AND GETTING IN OTHERS BUSINESS. I) PROVIDE PRESCRIBED MEDS, REDIRECT NEEDED. R) PATIENT IS COMPLIANT WITH MEDS. P) CONTINUE POC.
[2017-06-18 19:58] VITALS: BP 121/70
--- NOTE | 2017-06-19 01:43 | NUR ---
B) Patient alert and oriented to self, wanting to go to bed, calm and cooperative this shift, I) Administed scheduled medications, redited as needed, monitored for safety. R) Medication compliant, resting now in bed asleep. P) Continue plan of care.
--- NOTE | 2017-06-19 05:14 | PN ---
PATIENT:DAMARIS RIVER MEDICAL RECORD: [id number] LOCATION:KATELYNN Melendez ADMISSION DATE: 06/15/17 PROGRESS NOTE DATE OF SERVICE: 06/18/2017 SUBJECTIVE: No new complaint. OBJECTIVE: The patient continues to have outbursts of yelling from time to time. She vocalizes in a very high pitched and strained voice and frequently yells during normal conversation. She was able to take her medications today. On exam, mood is somewhat irritable. Affect is very shallow and very brittle. Speech is mentioned above. Content of thought shows nonspecific paranoid ideation. Sensorium shows no change. ASSESSMENT: No change in diagnosis. PLAN: 1. Maintain current medication. 2. Continue supportive therapy. TRANSINT:[id number] Voice Confirmation ID: [id number] DOCUMENT ID: [id number] ISMA LEON III, MD at 0514 CC: [id number] DICTATION DATE: 06/18/17 1120 TURBINE BLADE ASSEMBLER: 06/18/17 1222 ADM IN [id number] [place] [address]
[2017-06-19 08:36] VITALS: BP 149/90
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
[2017-06-19 19:30] VITALS: BP 138/86
--- NOTE | 2017-06-20 04:16 | NUR ---
B) Patient is alert and oriented to self, yelling out at times, grumpy I) Administered scheduled medications, monitored for safety R) medication compliant, crushed in pudding P) Continue plan of care.
--- NOTE | 2017-06-20 09:30 | NUR ---
B) AWAKE AND ALERT TO SELF, YELLS OUT WHEN TRYING TO GET HER OUT OF BED. CALM AND COOPERATIVE WITH ASSESSMENT. NO AGGRESION NOTED BEFORE BREAKFAST. I) ADMINISTERED PRESCRIBED MEDICATIONS. FREQUENTLY REDIRECTED. R) COMPLIANT WITH AM MEDS, BUT AFTER A NAP IN RECLINER SHE REFUSED HER RISPERDOL. P) CONTINUE PLAN OF CARE AND MONITOR FOR SAFETY AND CHANGES.
[2017-06-20 09:41] VITALS: BP 126/94
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
[2017-06-20 20:25] VITALS: BP 122/64
--- NOTE | 2017-06-21 01:23 | NUR ---
B) Patient alert and oriented to self, grumpy and isolating, cooperative with care and assessment. I) Administered scheduled medications, monitored for safety and falls, R) Medications compliant, resting quietly in bed asleep, P) Continue plan of care.
[2017-06-21 07:00] VITALS: BP 121/91
--- NOTE | 2017-06-21 15:04 | NUR ---
ORIENTED TO SELF .COMPLIANT WITH MEDS AND STAFF.MEDS CRUSHED AND GIVEN IN APPLESAUCE.NO AGGRESSION OBSERVED TODAY,SLEEPS MOST OF DAY BUT AWAKENS FOR MEALS.WILL CONTINUE WITH PLAN OF CARE,MONITOR FOR CHANGES AND SAFETY.
[2017-06-21 19:35] VITALS: BP 125/75
--- NOTE | 2017-06-21 20:07 | PN ---
PATIENT:DAMARIS RIVER MEDICAL RECORD: [id number] LOCATION:KATELYNN Melendez ADMISSION DATE: 06/15/17 PROGRESS NOTE DATE OF SERVICE: 06/19/2017 SUBJECTIVE: No new complaint. OBJECTIVE: The patient has been more agitated. She has been throwing objects and difficult to redirect. On exam, mood irritable. Affect is very brittle. Speech is tangential. Content of thought is positive for paranoid ideation. Sensorium shows no change. ASSESSMENT: No change in diagnosis. PLAN: 1. Discontinue perphenazine. 2. Begin Risperdal 1 mg twice a day. 3. Continue other current medications. 4. Continue supportive therapy. TRANSINT:[id number] Voice Confirmation ID: [id number] DOCUMENT ID: [id number] ISMA LEON III, MD at 2006 CC: [id number] DICTATION DATE: 06/19/17 1157 VOLUNTEER ASSISTANT: 06/19/17 1323 ADM IN [address] [place] [address]
--- NOTE | 2017-06-21 23:58 | NUR ---
RECEIVED IN DAYROOM. RESTING IN RECLINER WITH EYES CLOSED. CALM AND COOPERATIVE WT CARE AND ASSESSMENT. NO SIGNS OF AGGRESSION. ENCOURAGE TO EXPRESS NEEDS. REDIRECT AND REORIENT NEEDED. RESTING IN BED WITH EYES CLOSED AT THIS TIME. CONTINUE PLAN OF CARE.
[2017-06-22 07:00] VITALS: BP 140/91
--- NOTE | 2017-06-22 16:00 | NUR ---
B) AWAKE AND ALERT TO SELF. CALM AND COOPERATIVE WITH CARE. NO AGGRESSION NOTED. IN GOOD MOOD TODAY. I) ADMINISTERED PRESCRIBED MEDICATION, ASSESSMENT COMPLETED, VSS. R) COMPLIANT WITH MEDICATIONS. RESTING QUIETLY IN RECLINER. REDIRECT NEEDED. P) CONTINUE PLAN OF CARE AND MONITOR FOR SAFETY.
[2017-06-22 19:20] VITALS: BP 118/58
--- NOTE | 2017-06-22 22:11 | NUR ---
RECEIVED IN ROOM. RESTING IN BED WITH EYES CLOSED. CALM AND COOPERATIVE WITH CARE AND ASSESSMENT. NO SIGNS OF AGGRESION. ENCOURAGE TO EXPRESS NEEDS. REDIRECT AND REORIENT NEEDED. RESTING IN BED WITH EYES CLOSED AT THIS TIME. CONTINUE PLAN OF CARE.
--- NOTE | 2017-06-23 09:00 | NUR ---
Received pt in dayroom for group, alert, calm, no aggression noted, med compliant. Meds admin as ordered and group therapy provided. Jeanne meds well with no s/s adverse reaction noted. Cont POC including medications and group therapy, encouraging increased participation.
[2017-06-23 09:53] VITALS: BP 135/89
--- NOTE | 2017-06-23 10:46 | PN ---
PATIENT:DAMARIS RIVER MEDICAL RECORD: [id number] LOCATION:KATLEYNN Melendez ADMISSION DATE: 06/15/17 PROGRESS NOTE DATE OF SERVICE: 06/22/2017 SUBJECTIVE: No new coherent complaint. OBJECTIVE: The patient has continued to exhibit irritability and agitation over the weekend. She is at times pleasant, at other times quite hostile. On exam, mood is irritable. Affect is brittle. Speech is tangential. Content of thought is positive for paranoid ideation. Sensorium shows no change. ASSESSMENT: No change in diagnosis. PLAN: 1. Advance Risperdal to 1 mg b.i.d. 2. Continue other current medications. 3. Continue supportive therapy. TRANSINT:[id number] Voice Confirmation ID: [id number] DOCUMENT ID: [id number] ISMA LEON III, MD at 1046 CC: [id number] DICTATION DATE: 06/22/17 1138 PATHOLOGY TECH: 06/22/17 1234 ADM IN [id number] [place] [id number]
--- NOTE | 2017-06-23 14:11 | NUR ---
Nutrition Follow Up: Chart reviewed. Pt is eating 58% meal avg on a regular [facility] soft diet. +BM 06/23/17. Meds noted including Megace. Labs reviewed. Rec continue current diet. Rec Megace. RD following.
[2017-06-23 20:10] VITALS: BP 109/58
--- NOTE | 2017-06-23 21:30 | NUR ---
RECEIVED IN BEDROOM. RESTING IN BED WTIH EYES OPEN. CALM AND COOPERATIVE WITH CARE AND ASSESSMENT. NO SIGNS OF AGGRESSION. ENCOURAGE TO EXPRESS NEEDS. REDIRECT AND REORIENT NEEDED. RESTING IN BED WITH EYES CLOSED AT THIS TIME. CONTINUE PLAN OF CARE.
[2017-06-24 08:33] VITALS: BP 149/80
--- NOTE | 2017-06-24 10:33 | PN ---
PATIENT:DAMARIS RIVER MEDICAL RECORD: [id number] LOCATION:KATELYNN Melendez ADMISSION DATE: 06/15/17 PROGRESS NOTE DATE OF SERVICE: 06/23/2017 SUBJECTIVE: No new complaint. OBJECTIVE: The patient is overall showing improvement. She has been fairly pleasant during the last 24 hours and has even interacted to some degree with staff. On exam, mood is for the most part euthymic. Affect is shallow. Speech tends to be tangential. Content of thought is negative for overt psychosis at the moment. Sensorium shows no change. ASSESSMENT: No change in diagnosis. PLAN: 1. Maintain current medication. 2. Continue supportive therapy. TRANSINT:[id number] Voice Confirmation ID: [id number] DOCUMENT ID: [id number] ISMA LEON III, MD at 1033 CC: [id number] DICTATION DATE: 06/23/17 1158 MEDICAL PHYSIOLOGIST: 06/23/17 1219 ADM IN [id number] [place] [address]
--- NOTE | 2017-06-24 11:52 | NUR ---
B) PATIENT IS AWAKE AND ALERT, SHE ISN'T SAYING MUCH TODAY, SHE KNOWS HER NAME AND SHE HAS BEEN COMPLIANT TODAY TO TAKE HER MEDS. PATIENT DOES NOT LIKE TO GET UP IN AM, BUT SHE IS TAKING HER MEDS TODAY AND SHE HAS BEEN POLITE. I) PROVIDE PRESCRIBED MEDS. R) PATIENT IS COMPLIANT WITH MEDS AND UNIT MILIEU. P) CONTINUE POC.
[2017-06-24 20:22] VITALS: BP 126/70
--- NOTE | 2017-06-24 23:45 | NUR ---
B) patient is alert and oriented to self, calm and napping at times, yells out for other patients to shut up when they are being loud, I) Administered scheduled medications crushed in apple sauce, redirected as needed, monitored for safety. R) Medication compliant, resting now quietly in bed, P) Continue plan of care.
--- NOTE | 2017-06-25 07:56 | NUR ---
B) PATIENT IS IRRITABLE THIS AM, SHE DOESN'T WANT CLOTHES ON OR SOCKS OR A BLANKET, NOW SHE IS TRYING TO GET HER ARM BAND OFF. SHE IS WEARING A GOWN SITTING IN THE HALLWAY. PATIENT IS IN A GERICHAIR CURRENTLY. I) PROVIDE PRESCRIBED MEDS. R) PATIENT IS CONFUSED, SHE KNOWS HER NAME, NOT PLACE OR TIME. P) CONTINUE POC.
[2017-06-25 08:00] VITALS: BP 120/68
[2017-06-25 20:58] VITALS: BP 120/71
--- NOTE | 2017-06-26 03:06 | NUR ---
B) Patient is alert and oriented to self, calm and quiet, I) Patient refused all medications this shift very polietly R) resting quietly in bed P) Continue plan of care.
[2017-06-26 08:15] VITALS: BP 100/68
--- NOTE | 2017-06-26 12:13 | NUR ---
B) PATIENT IS MORE AWAKE AND ALERT TODAY, SHE TOOK MOST OF HER MEDS, BUT REFUSED SOME VITAMINS. PATIENT DID HAVE A SHOWER THIS AM, AND SHE IS INTERACTING IN ACTIVITIES TODAY. SHE STANDS WITH ASSIST. I) PROVIDE PRESCRIBED MEDS AND ENCOURAGE GROUPS. R) PATIENT IS COMPLIANT WITH MEDS AND UNIT MILIEU. P) CONTINUE POC.
--- NOTE | 2017-06-26 17:09 | PN ---
PATIENT:DAMARIS RIVER MEDICAL RECORD: [id number] LOCATION:KATELYNN Melendez ADMISSION DATE: 06/15/17 PROGRESS NOTE DATE OF SERVICE: 06/25/2017 SUBJECTIVE: The patient's case was discussed with staff. She has no new complaint. OBJECTIVE: The patient denies intent to harm herself or others. She is severely impaired cognitively. ASSESSMENT: No change in diagnoses. PLAN: The patient's established problem of agitation is better. She will be maintained on current medicines, which I have reviewed. Her long-term prognosis is guarded. TRANSINT:[id number] Voice Confirmation ID: [id number] DOCUMENT ID: [id number] JENNIFER THORNE MD at 1709 CC: [id number] DICTATION DATE: 06/25/17 1230 DIRECTOR OF VITAL STATISTICS: 06/25/17 1312 ADM IN [id number] [place] [address]
[2017-06-26 19:40] VITALS: BP 111/61
--- NOTE | 2017-06-27 03:14 | NUR ---
B) Patient alert and oriented to self, calm and cooperative, wanting to go to bed, I) Administered scheduled medications, monitored for safety and falls, R) Medications compliant, resting quietly in bed P) Continue plan of care.
[2017-06-27 08:10] VITALS: BP 128/89
--- NOTE | 2017-06-27 11:56 | PN ---
PATIENT:DAMARIS RIVER MEDICAL RECORD: [id number] LOCATION:KATELYNN Melendez ADMISSION DATE: 06/15/17 PROGRESS NOTE DATE OF SERVICE: 06/26/2017 SUBJECTIVE: The patient's case was discussed with staff. She has no new complaint. OBJECTIVE: The patient is in good behavioral control, but still somewhat disorganized. She unfortunately is intermittently refusing to take her medications, which of course makes it quite difficult to know how to adjust them. When asked about this, she insists she has not been refusing them. ASSESSMENT: No change in diagnoses. PLAN: The patient will be maintained on current medicines. Hopefully, she will begin taking them consistently or giving me information that I can use to make them better tolerated or more effective. Supportive and educational interventions were made. TRANSINT:[id number] Voice Confirmation ID: [id number] DOCUMENT ID: [id number] JENNIFER THORNE MD at 1156 CC: [id number] DICTATION DATE: 06/26/171752 BRAND MGR: 06/26/17 1950 ADM IN [facility] [address] [id number]
--- NOTE | 2017-06-27 12:38 | NUR ---
ORIENTED TO SELF ONLY.SLEEPS MOST OF THE DAY ,BUT AWAKENS FOR MEALS.IS COMPLIANT WITH MEDS.COOPERATIVE WITH STAFF.MEDS CRUSHED AND TAKEN INAPPLESAUCE.WILL CONTINUE WITH PLAN OF CARE,MONITOR FOR CHANGES AND SAFETY.
--- NOTE | 2017-06-27 22:39 | NUR ---
B) patient is alert and oriented to self, cursing and refusing care at times, does not redirect, I) Offered scheduled medications several times, monitored for safety, R) Refused medications this shift, resting quietly in bed now, P) Continue plan of care
[2017-06-28 08:19] VITALS: BP 146/91
--- NOTE | 2017-06-28 12:30 | NUR ---
B) AWAKE AND ALERT TO SELF ONLY, CALM AND COOPERATIVE, SLEEPS MOST OF DAY IN RECLINER, BUT AWAKENS FOR MEALS. NO AGGRESSION NOTED. I) ADMINISTERED PRESCRIBED MEDICATIONS, VSS, ASSESSMENT COMPLETED. R) MEDICATION COMPLIANT, MONITOR FOR SAFETY. P) CONTINUE PLAN OF CARE.
[2017-06-28 20:00] VITALS: BP 112/59
--- NOTE | 2017-06-28 20:07 | NUR ---
RECEIVED IN DAYROOM. LAYING IN RECLINER WITH EYES CLOSED. NOT SOCIALIZING. CALM AND COOPERATIVE WITH CARE AND ASSESSMENTS. NO SIGNS OF AGGRESSION. REDIRECT AND REORIENT NEEDED. CONTINUES TO REST EYES CLOSED IN RECLINER. CONTINUE PLAN OF CARE
[2017-06-29 08:00] VITALS: BP 172/90
[2017-06-29 08:14] VITALS: BMI 23.6
--- NOTE | 2017-06-29 10:00 | NUR ---
B) AWAKE AND CONFUSED. WOKE UP IN A BAD MOOD. SHE STARTED CURSING AT THE STAFF, REFUSING TO DO WHAT WAS ASKED OF HER. REORIENTED AND REDIRECTED. I) PROVIDED PRESCRIBED MEDICATIONS, VSS, ASSESSMENT COMPLETED. R) NON-COMPLIANT WITH MEDS. MONITOR FOR SAFETY. P) CONTINUE PLAN OF CARE.
--- NOTE | 2017-06-29 13:33 | PN ---
PATIENT:DAMARIS RIVER MEDICAL RECORD: [id number] LOCATION:KATELYNN Melendez ADMISSION DATE: 06/15/17 PROGRESS NOTE DATE OF SERVICE: 06/27/2017 SUBJECTIVE: The patient's case was discussed with staff. She has no new complaint. OBJECTIVE: The patient is in good behavioral control with limited insight about her condition. She tolerates her medicines well. She is severely impaired cognitively. ASSESSMENT: No change in diagnoses. PLAN: Supportive and educational interventions were made. Snf prognosis is guarded. TRANSINT:[id number] Voice Confirmation ID: [id number] DOCUMENT ID: [id number] JENNIFER THORNE MD at 1333 CC: [id number] DICTATION DATE: 06/27/17 1213 SUPPORT ASSOCIATE: 06/27/17 1231 ADM IN [address] [id number] [place] [address]
--- NOTE | 2017-06-29 14:03 | NUR ---
Nutrition Follow Up: Pt is eating 61% meal avg on a regular diet. Wt stable. +BM 06/27/17. Labs reviewed. Meds noted including Megace. Rec continue current diet. RD following.
[2017-06-29 20:07] VITALS: BP 139/58
--- NOTE | 2017-06-29 23:53 | NUR ---
RECEIVED IN BEDROOM. RESTING IN BED WITH EYES CLOSED. RESPONDS TO VOICE. CALM AND COOPERATIVE WITH CARE AND ASSESSMENTS. NO SIGNS OF AGGRESSION. TOOK PM MEDS ORDERED. REDIRECT AND REORIENT NEEDED. RESTING IN BED EYES CLOSED AT THIS TIME. CONTINUE PLAN OF CARE
[2017-06-30 08:00] VITALS: BP 136/86
--- NOTE | 2017-06-30 13:00 | NUR ---
AWAKE AND CONFUSED, ORIENTED TO SELF ONLY. CALM AND COOPERATIVE WITH CARE, ADMINISTERED PRESCRIBED MEDICATIONS. REDIRECT AND REORIENT NEEDED. COMPLIANT WITH MEDICATIONS. MONITOR FOR SAFETY. CONTINUE PLAN OF CARE.
--- NOTE | 2017-06-30 14:30 | PN ---
PATIENT:DAMARIS RIVER MEDICAL RECORD: [id number] LOCATION:KATELYNN KelseyArlenNiesha ADMISSION DATE: 06/15/17 PROGRESS NOTE DATE OF SERVICE: 06/29/2017 SUBJECTIVE: The patient's case was discussed with staff. She has no new complaint. OBJECTIVE: The patient is in good behavioral control with limited insight about her condition. She is not taking her medicines as prescribed. ASSESSMENT: No change in diagnoses. PLAN: Supportive and educational interventions were made. Jail prognosis is guarded. TRANSINT:[id number] Voice Confirmation ID: [id number] DOCUMENT ID: [id number] JENNIFER THORNE MD at 1430 CC: [id number] DICTATION DATE: 06/29/17 1346 STEEL MANAGER: 06/29/17 1417 ADM IN [id number] [place] [address]
[2017-06-30 20:21] VITALS: BP 111/59
--- NOTE | 2017-07-01 00:44 | NUR ---
RECEIVED IN BEDROOM. RESTING IN BED [facility] EYES CLOSED. NOT SOCIAL WITH STAFF. CALM AND COOPERATIVE [facility] CARE AND ASSESSMENT. NO SIGNS OF AGGRESSION. ENCOURAGE TO EXPRESS NEEDS. REDIRECT AND REORIENT NEEDED. RESTING IN BED [facility] EYES CLOSED AT THIS TIME. CONTINUE PLAN OF CARE.
--- NOTE | 2017-07-01 09:00 | NUR ---
REPORT RECEIVED AND CARE ASSUMED. AWAKE AND CONFUSED BUT IN A GOOD MOOD THIS MORNING. NO AGGRESSION NOTED. ADMININISTERED MEDICATIONS ORDERED. REDIRECT NEEDED. COMPLIANT WITH TAKING MEDS. RESTING QUIETLY IN W/C. MONITOR FOR SAFETY AND CONTINUE PLAN OF CARE.
[2017-07-01 09:34] VITALS: BP 144/83
--- NOTE | 2017-07-01 13:00 | PN ---
PATIENT:DAMARIS RIVER MEDICAL RECORD: [id number] LOCATION:[facility] ADMISSION DATE: 06/15/17 PROGRESS NOTE DATE OF SERVICE: 06/30/2017 SUBJECTIVE: The patient's case was discussed with staff. She has no new complaint. OBJECTIVE: The patient is refusing her medicines intermittently. She has no explanation for this when asked about it and in fact gets angry and says she always takes her medicines. ASSESSMENT: No change in diagnoses. PLAN: Supportive and educational interventions were made. Nursing Home prognosis is guarded. TRANSINT:[id number] Voice Confirmation ID: [id number] DOCUMENT ID: [id number] JENNIFER THORNE MD at 1300 CC: [id number] DICTATION DATE: 06/30/17 1518 PATIENT SITTER: 06/30/[address] [facility] [address] [place] [address]
[2017-07-01 19:36] VITALS: BP 123/69
--- NOTE | 2017-07-01 22:20 | NUR ---
RECEIVED IN BEDROOM. RESTING IN BED WITH EYES CLOSED. SOCIAL WITH STAFF. CALM AND COOPERATIVE WITH CARE AND ASSESSMENT. MED COMPLIANT. NO SIGNS OF AGGRESSION. ENCOURAGE TO EXPRESS NEEDS. REDIRECT AND REORIENT NEEDED. RESTING IN BED WITH EYES CLOSED AT THIS TIME. CONTINUE PLAN OF CARE.
[2017-07-02 08:00] VITALS: BP 167/99
--- NOTE | 2017-07-02 08:00 | NUR ---
B) PATIENT IS PLAYING POSSUM, SHE IS TRYING TO STAY IN BED. SHE WOULD NOT GET UP EVEN WITH STAFF HELPING HER, ONCE STAFF SAT HER UP SHE SPIT IN THIS NURSES FACE. I) PROVIDE PRESCRIBED MEDS. R) PATIENT IS NONCOMPLIANT WITH MEDS TODAY. P) CONTINUE POC.
--- NOTE | 2017-07-02 10:29 | PN ---
PATIENT:DAMARIS RIVER MEDICAL RECORD: [id number] LOCATION:[facility] ADMISSION DATE: 06/15/17 PROGRESS NOTE DATE OF SERVICE: 06/24/2017 SUBJECTIVE: No new complaint. OBJECTIVE: The patient's behavior has improved over the last 48 hours. She is more cooperative in terms of medication and activities. On exam, mood is euthymic. Affect is shallow. Speech tends to be repetitive. Content of thought is negative for overt psychosis. Sensorium shows no change. ASSESSMENT: No change in diagnosis. PLAN: 1. Maintain current medication. 2. Continue supportive therapy. TRANSINT:[id number] Voice Confirmation ID: [id number] DOCUMENT ID: [id number] ISMA LEON III, MD at 1029 CC: [id number] DICTATION DATE: 06/24/17 1124 SPORT SHOE SPIKE ASSEMBLER: 06/24/17 1220 ADM IN [place] [id number] [place] [id number]
[2017-07-02] MEDS ORDERED: CATAPRES0.1 MG PO (11:39)
[2017-07-02] MEDS ORDERED: ARTIFICIAL TEAR15 ML EACH EYE (11:40)
[2017-07-02] MEDS ORDERED: RISPERDAL SOL1 MG/ML PO (11:40)
--- NOTE | 2017-07-02 13:31 | PN ---
PATIENT:DAMARIS RIVER MEDICAL RECORD: [id number] LOCATION:[facility] ADMISSION DATE: 06/15/17 PROGRESS NOTE DATE OF SERVICE: 07/01/2017 SUBJECTIVE: The patient's case was discussed with staff. She has no new complaint. OBJECTIVE: The patient is in better behavioral control. She has limited insight about her condition. She generally tolerates her medicines well. ASSESSMENT: No change in diagnoses. PLAN: Brief supportive and educational interventions were made. Alf prognosis is guarded. TRANSINT:[id number] Voice Confirmation ID: [id number] DOCUMENT ID: [id number] JENNIFER THORNE MD at 1331 CC: [id number] DICTATION DATE: 07/01/17 1321 DISTRIBUTION DISTRICT SUPERVISOR: 07/01/17 1403 ADM IN [place] [id number] [place] [address]
[2017-07-02 22:45] VITALS: BP 158/95
--- NOTE | 2017-07-03 01:31 | NUR ---
B) Patient is alert and oriented to self, napping in the day room, calm and cooperative with staff, impatient to go to bed, I) Administered scheduled medications, monitored for falls and safety R) Medication compliant, asked for medication 5 minuted after having refusing all medications P) Continue plan of care.
--- NOTE | 2017-07-03 10:24 | PN ---
PATIENT:DAMARIS RIVER MEDICAL RECORD: [id number] LOCATION:[facility] ADMISSION DATE: 06/15/17 PROGRESS NOTE DATE OF SERVICE: 07/02/2017 SUBJECTIVE: No new complaint. OBJECTIVE: Staff report the patient is still occasionally inconsistent on her medications, but behavior has considerably improved. On exam, mood is for the most part euthymic. Affect is constricted. Speech is terse. Content of thought negative for overt psychosis at the moment. Sensorium shows no change. ASSESSMENT: No change in diagnosis. PLAN: 1. Continue current treatment plan. 2. Anticipate discharge tomorrow. TRANSINT:[id number] Voice Confirmation ID: [id number] DOCUMENT ID: [id number] ISMA LEON III, MD at 1024 CC: [id number] DICTATION DATE: 07/02/17 1145 SENIOR RESEARCH FELLOW: 07/02/17 1209 ADM IN [place] [id number] [place] [address]
--- NOTE | 2017-07-03 11:00 | NUR ---
B) PATIENT ACTS OUT THIS AM BY STRIPPING ALL OF HER CLOTHES OFF AFTER STAFF GOT HER DRESSED, SHE REFUSED ALL MEDS, MANAGED TO GET RISPERDAL IN HER VIA HER ICED WATER. PATIENT NOT COOPERATIVE TODAY AND SO SHE WAS DENIED A D/C BACK TO THE DET[facility]. I) PROVIDE PRESCRIBED MEDS. R) PATIENT HAS BEEN VERY QUIET TODAY. P) CONTINUE POC.
[2017-07-03 19:00] VITALS: BP 137/90
--- NOTE | 2017-07-03 19:27 | PN ---
PATIENT:DAMARIS RIVER MEDICAL RECORD: [id number] LOCATION:[facility] ADMISSION DATE: 06/15/17 PROGRESS NOTE DATE OF SERVICE: 07/03/2017 SUBJECTIVE: No new complaint. OBJECTIVE: The patient was scheduled for discharge today, but became much more aggressive and required p.r.n. medication. On exam, mood is irritable. Affect is brittle. Speech is tangential. Content of thought is positive for nonspecific paranoid ideation. Sensorium is unchanged. ASSESSMENT: No change in diagnosis. PLAN: 1. Delay discharge until after the weekend. 2. Advance medication as indicated. 3. Continue supportive therapy. TRANSINT:[id number] Voice Confirmation ID: [id number] DOCUMENT ID: [id number] ISMA LEON III, MD at 1927 CC: [id number] DICTATION DATE: 07/03/17 1203 MANAGER CARDIOVASCULAR: 07/03/17 1235 ADM IN [place] [id number] [place] [address]
--- NOTE | 2017-07-04 02:24 | NUR ---
B) Patient is alert and oriented to self, sitting in blaine chair near MHT I) Administered scheduled medications crushed , redirected as needed, R) Medication compliant, resting quietly in bed now, P) Continue plan of care/
[2017-07-04 11:05] VITALS: BP 114/66
--- NOTE | 2017-07-04 14:13 | NUR ---
B) PATIENT IS COMPLIANT THIS AM WITH MEDS AND SHE HAS NOT SHOWN ANY AGITATION OR AGGRESSION TODAY, SHE LET STAFF ASSIST HER THIS AM WITH HER CLOTHES. I) PROVIDE PRESCRIBED MEDS. R) PROVIDE PRESCRIBED MEDS. P) CONTINUE POC.
--- NOTE | 2017-07-04 22:16 | NUR ---
B) Patient is alert and oriented to self, calm and cooperative this shift, I) Administered scheduled medications, monitored for safety. R) Medication compliant, naps often P) Continue plan of care.
[2017-07-04 22:47] VITALS: BP 138/78
[2017-07-05 07:00] VITALS: BP 130/73
--- NOTE | 2017-07-05 15:23 | NUR ---
ORIENTED TO SELF AND HOSPITAL.COMPLIANT WITH STAFF AND MEDS.REST QUIETLY IN RECLINER .WILL CONTINUE WITH PLAN OF CARE,MONITOR FOR CHANGES AND SAFETY.
[2017-07-05 19:30] VITALS: BP 126/71
--- NOTE | 2017-07-05 20:32 | NUR ---
RECEIVED IN BEDROOM. RESTING IN BED WITH EYES CLOSED. RESPONDS TO TOUCH. CALM AND COOPERATIVE WITH CARE AND ASSESSMENTS. NO SIGNS OF AGGRESSION. REDIRECT AND REORIENT NEEDED. RESTING IN BED EYES CLOSED AT THIS TIME. CONTINUE PLAN OF CARE
[2017-07-06 09:18] VITALS: BP 162/92
--- NOTE | 2017-07-06 15:21 | NUR ---
CALM AND COOPERATIVE WITH AM CARE. NO AGGRESSION NOTED. MEDICATIONS GIVEN ORDERED AND TAKEN WHOLE IN APPLESAUCE. FALL PRECAUTIONS AND SAFETY MAINTAINED. WILL CONTINUE TO MONITOR. PATIENT IS SET FOR DISCHARGE TODAY. ALL PAPERWORK REVIEWED AND FAXED TO [employer]. ALL BELONGINGS BAGGED AND ACCOUNTED FOR.
--- NOTE | 2017-07-07 10:27 | DS ---
PATIENT:DAMARIS RIVER :[birth year] MEDICAL RECORD: [id number] DISCHARGE SUMMARY ADMISSION DATE: 06/15/17 DISCHARGE DATE: 07/06/17 DATE OF ADMISSION: 06/10/2017 DATE OF DISCHARGE: 07/06/2017. HISTORY: An 89-year-old white female who carries a diagnosis of chronic schizophrenia as well as Alzheimer dementia. The patient is a resident of a local [facility]. She had again become combative with staff and very difficult to manage. For further details, please see previously dictated history. COURSE IN THE HOSPITAL: The patient was seen in consultation by Dr. Chavarria. Dr. Chavarria had noted the presence of hypothyroidism, hypertension, osteoarthritis, osteoporosis, hyperlipidemia, and vitamin D and B12 deficiency. The patient was managed conservatively. She was started on Risperdal and dosage was stabilized at 1-1/2mg twice a day. She was maintained on other routine medications including Catapres on p.r.n. basis, Aricept 5 mg h.s., Norvasc 2.5 mg h.s., vitamin D supplements, Synthroid 25 mcg daily. The patient showed gradual improvement in her behavior. She showed occasional agitation, but by the time of discharge was much more stable and ready for the fpc environment. FINAL DIAGNOSES: AXIS I: Schizophrenia, chronic undifferentiated type, Alzheimer dementia with behavioral disturbance. AXIS II: No diagnosis. AXIS III: Hypothyroidism, hypertension, osteoporosis, degenerative joint disease. AXIS IV: Moderate. AXIS V: 40. PLAN: 1. The patient is discharged on the current medications. 2. Diet and activities as tolerated. 3. Follow up with the primary care physician. TRANSINT:[id number] Voice Confirmation ID: [id number] DOCUMENT ID: [id number] ISMA LEON III, MD at 1027 CC: [id number] DICTATION DATE: 07/06/17 1218 HOTEL CONTROLLER: 07/06/17 1250 DIS IN 07/06/17 [place] [id number] [place] [address]
== END 2017-07-06 17:28 | DRG 885 ==
LOC: D.ER 17:26 → D.PSYCH 20:35
PROVIDERS: Emergency Medicine; ADMIT Psychiatry & Neurology Psychiatry
DX: F20.5 Residual schizophrenia (principal); F02.81 Dementia in other diseases classified elsewhere, unspecified severity, with behavioral disturbance; G30.9 Alzheimer's disease, unspecified; E03.9 Hypothyroidism, unspecified; I10 Essential (primary) hypertension; M81.0 Age-related osteoporosis without current pathological fracture; E78.5 Hyperlipidemia, unspecified; M19.90 Unspecified osteoarthritis, unspecified site; Z74.09 Other reduced mobility; E53.8 Deficiency of other specified B group vitamins; E55.9 Vitamin D deficiency, unspecified; K59.00 Constipation, unspecified